=== PATIENT | male | born 1965 | race Caucasian/White ===

== ENCOUNTER → 2017-01-11 | Day surgery (SDC) | payer BC ==
[~2017-01-11] VITALS: Ht 188 cm; Wt 111.0 kg
== END | disposition disaster alternative care site (69) ==
LOC: GPOC 01-07 09:00 → GEND 08:13 → EDBD 09:00 → GPOC 09:00
PROC: 0DJD8ZZ Inspection of Lower Intestinal Tract, Via Natural or Artificial Opening Endoscopic (ICD-10-PCS; principal; 2017-01-11)
DX: Z12.11 Encounter for screening for malignant neoplasm of colon (principal); Z86.010 Personal history of colon polyps; Z98.890 Other specified postprocedural states
CPT/HCPCS: J2001; J7030